=== PATIENT | female | born 1950 | race Caucasian/White ===

== ENCOUNTER 2025-01-31 21:13 | Emergency (ER) | payer MEDICARE, OTHER ==
[~2025-01-31] VITALS: Ht 154.9 cm; Wt 74.8 kg
[2025-01-31] MEDS ORDERED: oxyCODONE/APAP (5/325 MG) 1 UDTAB TABLET ONE (21:41)
[2025-01-31] MEDS ORDERED: KETOROLAC TROMETHAMINE INJ 30 MG/ML VIAL ONE (21:42)
[2025-01-31] MEDS ORDERED: CYCLOBENZAPRINE 10 MG TABLET ONE (21:42)
[2025-01-31] MEDS: KETOROLAC TROMETHAMINE INJ 30 MG/ML VIAL IM ONE (21:50)
[2025-01-31] MEDS: CYCLOBENZAPRINE 10 MG TABLET PO ONE (21:50)
[2025-01-31] MEDS: oxyCODONE/APAP (5/325 MG) 1 UDTAB TABLET PO ONE (21:50)
[2025-01-31] MEDS ORDERED: ONDANSETRON HCL/PF 4 MG/2 ML VIAL ONE (23:09)
[2025-01-31] MEDS ORDERED: HYDROMORPHONE 1 MG/1 ML DISP.SYRIN ONE (23:09)
[2025-01-31] MEDS: ONDANSETRON HCL/PF - ER 4 MG/2 ML VIAL IV ONE (23:13)
[2025-01-31] MEDS: HYDROMORPHONE 1 MG/1 ML DISP.SYRIN IV ONE (23:14)
[2025-01-31 23:15] LABS: BASOPHILS % (AUTO) 0.5 % (0.0-2.0); EOSINOPHILS # (AUTO) 0.3 K/uL (0.0-0.7); EOSINOPHILS % (AUTO) 3.6 % (0.0-6.0); HEMATOCRIT 38 % (33-45); MEAN CORPUSCULAR HEMOGLOBIN 32 PG (26.0-33.0); MEAN CORPUSCULAR HGB CONC 34 g/dl (31.0-36.0); MEAN CORPUSCULAR VOLUME 95 fL (82-100); MONOCYTES # (AUTO) 0.5 K/uL (0.1-1.30); MONOCYTES % (AUTO) 6.6 % (2.0-12.0); NEUTROPHILS # (AUTO) 3.2 K/uL (1.8-8.9); NEUTROPHILS % (AUTO) 46.3 % (43.0-81.0); PLATELET COUNT (AUTO) 199 K/uL (150-450); RED CELL DISTRIBUTION WIDTH 13.2 % (11.5-15.0)
[2025-01-31 23:22] LABS: CALCIUM, SERUM 8.5 mg/dL (8.5-10.1); CREATININE 0.8 mg/dL (0.6-1.3); ERYTHROCYTE SEDIMENTATION RATE 11 MM/HR (0-30); POTASSIUM 4.2 mmol/L (3.5-5.1)
[2025-01-31 23:29] LABS: ALBUMIN 3.3 g/dL (3.4-5.0); BILIRUBIN,TOTAL 0.3 mg/dL (0.2-1.0); TOTAL PROTEIN, SERUM 7.1 g/dL (6.4-8.2)
[2025-02-01 01:08] LABS: APPEARANCE,URINE CLEAR (CLEAR); BILIRUBIN,URINE NEGATIVE (NEGATIVE); BLOOD, URINE NEGATIVE Ery/uL (NEGATIVE); COLOR,URINE YELLOW (YELLOW); KETONES,URINE NEGATIVE (NEGATIVE); LEUKOCYTE ESTERASE ,URINE NEGATIVE (NEGATIVE); NITRITE, URINE NEGATIVE (NEGATIVE); PROTEIN,URINE NEGATIVE (NEGATIVE); UGLUCOSE NEGATIVE (NEGATIVE); UROBILINOGEN,URINE 0.2 EU/dL (0.2)
[2025-02-01] MEDS ORDERED: GABA-532 PO (02:17)
[2025-02-01 02:46] VITALS: BP 188/77; TEMP 98; O2SAT 98
== END 2025-02-01 02:47 | disposition home or self-care (01) ==
LOC: ER 21:35
DX: M54.50 Low back pain, unspecified (principal); M51.369 Other intervertebral disc degeneration, lumbar region without mention of lumbar back pain or lower extremity pain; I10 Essential (primary) hypertension; J44.89 Other specified chronic obstructive pulmonary disease; Z79.899 Other long term (current) drug therapy
CPT/HCPCS: 99285; 96374; 72131; 96375; 72100; 73502; 85025; 85652; 36415; 80053; 96372; 81003; J1885; J1171; J2405 ×2